=== PATIENT | male | born 1995 | race Caucasian/White ===

== ENCOUNTER 2016-11-25 21:54 | Emergency (ER) | payer SELFPAY ==
[~2016-11-25] VITALS: Ht 188 cm; Wt 71.4 kg
[2016-11-25] MEDS ORDERED: PERCOCET 325 MG1 TA2 PO (22:08)
[2016-11-25] MEDS ORDERED: NORCO 325 MG-7.1 TAB PO (22:09)
[2016-11-25] MEDS ORDERED: CYCLOBENZ5 MG PO (23:50)
[2016-11-26 00:06] VITALS: BP 131/86
== END 2016-11-26 00:06 | disposition home or self-care (01) ==
LOC: ED 21:54
DX: M54.5 Low back pain (principal)